=== PATIENT | female | born 2000 | race Two or more races ===

== ENCOUNTER 2022-08-06 18:55 | Emergency (ER) | payer OTHER ==
[~2022-08-06] VITALS: Ht 170.2 cm; Wt 65.3 kg
[2022-08-06 19:03] VITALS: BP 123/78
== END 2022-08-06 22:02 | disposition home or self-care (01) ==
LOC: ER 18:55
DX: S67.01XA Crushing injury of right thumb, initial encounter (principal); W23.0XXA Caught, crushed, jammed, or pinched between moving objects, initial encounter; Y93.89 Activity, other specified; Y92.89 Other specified places as the place of occurrence of the external cause; Y99.8 Other external cause status
CPT/HCPCS: 73130; 81025; 99283